=== PATIENT | female | born 1990 | race African-American/Black ===

== ENCOUNTER 2017-03-27 16:51 | Emergency (ER) | payer OTHER ==
[~2017-03-27] VITALS: Ht 165.1 cm; Wt 7.7 kg
[~2017-03-27 16:51] MED LIST: CIPRO PO; DIFLUCAN PO; FLAGYL PO; FLEXERIL10 MG PO; OMEPRAZOLE20 M2 PO; ORUDIS75 M1 DOB; PEN-VEE K PO
== END 2017-03-27 17:23 | disposition home or self-care (01) ==
LOC: CED 16:51 → CFTX 16:51
DX: L72.3 Sebaceous cyst (principal)
CPT/HCPCS: 99283